=== PATIENT | female | born 1995 | race Caucasian/White ===

== ENCOUNTER 2024-06-02 21:14 | Emergency (ER) | payer MEDICAID ==
[~2024-06-02] VITALS: Ht 170.2 cm; Wt 59.0 kg
[2024-06-03 00:01] VITALS: BP 122/69; TEMP 98; O2SAT 99
== END 2024-06-03 00:02 | disposition home or self-care (01) ==
LOC: ER 21:20
DX: S01.81XA Laceration without foreign body of other part of head, initial encounter (principal); W22.09XA Striking against other stationary object, initial encounter; Y93.01 Activity, walking, marching and hiking; Y92.89 Other specified places as the place of occurrence of the external cause; Y99.8 Other external cause status